=== PATIENT | male | born 1995 | race Asian ===

== ENCOUNTER 2016-04-06 18:57 | Emergency (ER) | payer OTHER ==
[~2016-04-06] VITALS: Ht 170.2 cm; Wt 63.2 kg
[~2016-04-06 18:57] MED LIST: AMOX250C3 PO
[2016-04-06 19:01] VITALS: BP 142/83; PULSE 104; TEMP 36.9; O2SAT 99; Ht 170.2 cm; Wt 63.2 kg
[2016-04-06] MEDS ORDERED: OSELTAMIVIR PHOSPHATE 75 MG CAP PO STA (19:09)
[2016-04-06] MEDS ORDERED: ALBUTEROL HFA 8 GM INHALER INH ONE (19:15)
[2016-04-06] MEDS ORDERED: OSEL75CA12 PO (19:15)
[2016-04-06] MEDS ORDERED: VNTHFA/IN INH (19:15)
--- NOTE | 2016-04-06 19:50 | EMERGENCY ROOM VISIT NOTE ---
History Report prepared by Nataliia: Darinel Hernandez Under the Supervision of: Dr. Yinka Andrade M.D. First contact with patient: 19:04 Chief Complaint: FLU LIKE SX Stated Complaint: COLD AND FLU,DIARRHEA History of Present Illness The patient is a 20 year old male who presents to the Emergency Room with complaints of a persistent dry cough occurring for the past 2 days. The patient also complains of a runny nose and diarrhea. Today, he had a fever with a temperate of 38.7 degrees Celsius. He has been taking Ibuprofen with some relief. The patient denies sore throat, nausea, vomiting, or any other complaints. He has a history of pneumonia. He denies any history of lung disease. The patient did not receive his flu shot this year. His symptoms are similar to a friend who had the flu. Source of History: patient Onset: 2 days ago Position: other (global) Quality: other (dry cough) Timing: other (persistent) Modifying Factors (Relieving): ibuprofen (with some relief) Associated Symptoms: + diarrhea, + fevers, No nausea, No sorethroat, No vomiting Review of Systems See HPI for pertinent positives & negatives. A total of 10 systems reviewed and were otherwise negative. Past Medical & Surgical Medical Problems: (1) No significant past medical history Family History FH: diabetes mellitus FH: heart disease FH: hypertension FH: kidney disease FH: lung disease Social History Smoking Status: Never Smoker Alcohol Use: none Drug Use: none Marital Status: single Housing Status: lives with roommate Occupation Status: [employer] student Current/Historical Medications Scheduled Albuterol Hfa (Ventolin Hfa), 3 PUFFS INH Q4H Oseltamivir (Tamiflu), 75 MG PO BID Allergies Coded Allergies: No Known Allergies (Unverified , 04/06/16) Physical Exam Vital Signs Date Time Temp Pulse Resp B/P Pulse Ox O2 Delivery O2 Flow Rate FiO2 04/06/16 19:01 36.9 104 16 142/83 99 Room Air Physical Exam GENERAL: Patient is in no acute distress. HEENT: No acute trauma, normocephalic atraumatic, mild nasal congestion with rhinorrhea, no throat erythema or exudate, mucous membranes moist, no nasal congestion, no scleral icterus. NECK: No stridor, no adenopathy, no meningismus, trachea is midline. LUNGS: No wheezing or rhonchi. Breath sounds are equal. No respiratory distress. Dry cough noted. Breath sounds diminished bilaterally. HEART: 2/6 systolic murmur with a regular rate and rhythm. ABDOMEN: Soft, nontender, bowel sounds positive, no hernias, no peritonitis. EXTREMITIES: No cyanosis or edema, full range of motion of all the joints without pain or difficulty, no signs for acute trauma. NEUROLOGIC: Oriented x 3, no acute motor or sensory deficits, no focal weakness. SKIN: No rash, no jaundice, no diaphoresis. Medical Decision & Procedures Medications Administered Medications (Trade) Dose Ordered Sig/Diann Route Start Time Stop Time Status Last Admin Dose Admin Oseltamivir Phosphate (Tamiflu Cap) 75 mg NOW STAT PO 04/06/16 19:09 04/06/16 19:11 DC 04/06/16 19:23 75 MG Albuterol (Ventolin Hfa Inhaler) 3 puffs NOW ONCE INH 04/06/16 19:15 04/06/16 19:16 DC 04/06/16 19:23 3 PUFFS ED Course 1903: The patient was evaluated in room B03B. A complete history and physical exam was performed. 1908: Tamiflu Cap 75 mg PO 1914: Albuterol 3 puffs INH 1917: Reevaluated the patient. Discussed results and discharge instructions: He verbalized understanding and agreement. The patient is ready for discharge. Medical Decision Differential diagnosis includes but is not limited to influenza or flu-like illness, pneumonia, dehydration, electrolyte imbalance, pharyngitis. The patient presents with flulike symptoms. On exam, his lungs are clear. He does not have a significant pharyngitis. He is not toxic in appearance, he is not hypoxic. He was around someone recently who was diagnosed with the flu. The patient very likely has influenza. He is being prescribed Tamiflu and albuterol, he can use Motrin or Tylenol for fever, rest and fluids were encouraged. If worsening, he can return. Impression Primary Impression: Influenza Scribe Attestation The scribe's documentation has been prepared under my direction and personally reviewed by me in its entirety. I confirm that the note above accurately reflects all work, treatment, procedures, and medical decision making performed by me. Departure Information Dispostion Home / Self-Care Prescriptions Albuterol Hfa (VENTOLIN HFA) 200 Puffs/88345 Mcg Aers 3 PUFFS INH Q4H, #1 INHALER Prov: Yinka Andrade M.D. 04/06/16 Oseltamivir (Tamiflu) 75 Mg Cap 75 MG PO BID, #10 CAP Prov: Yinka Andrade M.D. 04/06/16 Forms HOME CARE DOCUMENTATION FORM, IMPORTANT VISIT INFORMATION, School Instructions, Work Instructions Patient Instructions [facility] Additional Instructions tamiflu as directed 2x per day for 5 days fluids rest motrin or tylenol for fever and aches albuterol 3 puffs every 4 hours for cough and breathing return for worsening symptoms or if not improving return for shortness of breath
== END 2016-04-06 19:25 | disposition home or self-care (01) ==
LOC: C.EDB 18:58
DX: J11.1 Influenza due to unidentified influenza virus with other respiratory manifestations (principal)

== ENCOUNTER 2016-06-23 22:17 | Emergency (ER) | payer OTHER ==
[~2016-06-23] VITALS: Ht 175.3 cm; Wt 91.9 kg
[~2016-06-23 22:17] MED LIST changes: -AMOX250C3 PO; +OSEL75CA12 PO; +VNTHFA/IN INH
[2016-06-23 22:21] VITALS: BP 149/84; PULSE 92; TEMP 36.7; O2SAT 96; Ht 175.3 cm; Wt 91.9 kg
--- NOTE | 2016-06-23 22:59 | DIAGNOSTIC IMAGING REPORT ---
LEFT FOURTH FINGER 3 VIEWS CLINICAL HISTORY: Fourth finger injury. FINDINGS: 3 views of left fourth finger are obtained. No prior studies are available for comparison at the time of dictation. The skeletal structures are well mineralized. No fracture is seen. The fourth metacarpophalangeal and interphalangeal joints are well-maintained. Mild soft tissues swelling is noted in the fourth finger, greatest around the proximal interphalangeal joint. IMPRESSION: Mild soft tissue swelling with no radiographic evidence of fracture in the left fourth finger. Electronically signed by: Yinka Storey M.D. 06/23/2016 10:57 PM Dictated Date/Time: 06/23/2016 10:56 PM
--- NOTE | 2016-06-23 23:37 | EMERGENCY ROOM VISIT NOTE ---
ED Visit Note First contact with patient: 22:23 CHIEF COMPLAINT: Finger injury HISTORY OF PRESENT ILLNESS: This 20-year-old male patient presents to the emergency department after injuring the left fourth finger after falling while playing soccer yesterday. The patient rates the pain as dull and 7/10. The patient has limited range of motion of the finger. No numbness or tingling. No lacerations. No other injuries. The patient has not had previous fracture to this finger. The patient has taken nothing for the pain. REVIEW OF SYSTEMS: A 6 system review of systems was completed with positives and pertinent negatives in the HPI. ALLERGIES: No known allergies MEDICATIONS: No chronic medications PMH: Otherwise healthy SOCIAL HISTORY: Student who lives locally PHYSICAL EXAM: Vital Signs: Reviewed Nurse's notes, vital signs stable. GENERAL : Male, in no acute distress, but appears to be in pain, well-developed, well- nourished. MUSCULOSKELETAL: There is no deformity of the left fourth finger. The patient has limited flexion and and limited extension of the left fourth finger, but is able to do this against resistance. The PIP joint is maximally tender. There is no ligamentous instability. There is no laceration. Capillary refill less than 2 seconds. No tenderness of the remaining fingers or hand. Full range of motion of the wrist. NEURO: Alert and oriented to person, place, and time. Normal sensation to light and sharp touch. LEFT FOURTH FINGER 3 VIEWS CLINICAL HISTORY: Fourth finger injury. FINDINGS: 3 views of left fourth finger are obtained. No prior studies are available for comparison at the time of dictation. The skeletal structures are well mineralized. No fracture is seen. The fourth metacarpophalangeal and interphalangeal joints are well-maintained. Mild soft tissues swelling is noted in the fourth finger, greatest around the proximal interphalangeal joint. IMPRESSION: Mild soft tissue swelling with no radiographic evidence of fracture in the left fourth finger. EMERGENCY DEPARTMENT COURSE: Physical exam and history were performed. Nursing notes and EMR were reviewed. The patient appears to have suffered injury to his left ring finger yesterday. He does have some tenderness over the PIP, but is able to flex and extend against resistance. X-ray was performed and does not show evidence of acute fracture or dislocation. I discussed conservative management with the patient. He was placed in a metal splint and may use [id number] analgesics for his pain. He should follow with [facility] or orthopedics with any ongoing or persistent symptoms. He was otherwise invited back to the ER with any new, worsening, or concerning symptoms. Current/Historical Medications No Active Prescriptions or Reported Meds Allergies Coded Allergies: No Known Allergies (Unverified , 06/23/16) Vital Signs Date Time Temp Pulse Resp B/P Pulse Ox O2 Delivery O2 Flow Rate FiO2 06/23/16 22:21 36.7 92 18 149/84 96 Room Air Departure Information Impression Primary Impression: Injury of finger of left hand Dispostion Home / Self-Care Condition GOOD Prescriptions No Active Prescriptions or Reported Meds Forms HOME CARE DOCUMENTATION FORM, IMPORTANT VISIT INFORMATION Patient Instructions My [facility] Additional Instructions You were seen and evaluated today on an emergency basis only. This is not a substitute for, or an effort to provide, complete comprehensive medical care. It is not possible to recognize and treat all injuries or illnesses in a single emergency department visit. For this reason it is recommended that you followup with [facility] with any ongoing or persistent symptoms. For baseline pain relief you may alternate ibuprofen and acetaminophen every 4 hours for pain control. Take 600 mg ibuprofen (Advil) and then 4 hours later take 1000 mg acetaminophen (Tylenol). Do not take more than 3000 mg acetaminophen in a single day. Wear your splint for the next 4-5 days and slowly advancing activity as tolerated. You are welcome to return to the emergency department anytime with new, worsening, or concerning symptoms.
== END 2016-06-23 23:01 | disposition home or self-care (01) ==
LOC: C.EDB 22:18 → C.EDC 23:01
DX: S69.92XA Unspecified injury of left wrist, hand and finger(s), initial encounter (principal); W19.XXXA Unspecified fall, initial encounter; Y93.66 Activity, soccer